=== PATIENT | female | born 1945 | race Caucasian/White ===

== ENCOUNTER 2018-12-09 06:20 | Inpatient (IN) | payer MEDICARE ==
[2018-11-29 11:28] LABS: BASOPHILS # (AUTO) 0.1 X10'3 (0-0.2); BASOPHILS % (AUTO) 0.9 % (0-1); EOSINOPHILS # (AUTO) 0.1 X10'3 (0-0.9); EOSINOPHILS % (AUTO) 1.5 % (0-6); LYMPHOCYTES % (AUTO) 31.2 % (21-51); MEAN CORPUSCULAR HGB CONC 32.9 g/dL (33.0-36.5); MEAN CORPUSCULAR VOLUME 88.2 FL (78-98); MEAN PLATELET VOLUME 10.6 FL (7.4-10.4); MONOCYTES # (AUTO) 0.6 X10'3 (0-0.9); MONOCYTES % (AUTO) 9.2 % (2-12); NEUTROPHILS # (AUTO) 3.7 X10'3 (1.8-7.7); NEUTROPHILS % (AUTO) 57.2 % (42-75); PRE OP HEMATOCRIT 43.4 % (35.0-45.0); PRE OP HEMOGLOBIN 14.2 g/dL (12.0-16.0); PRE OP PLATELET COUNT 211 X10'3 (140-440); RED BLOOD COUNT 4.91 X10'6 (4.20-5.60); RED CELL DISTRIBUTION WIDTH 14.8 % (11.5-14.5)
[2018-11-29 11:52] LABS: PRE OP PROTIME 10.3 SECONDS (9.0-12.0)
[2018-11-29 12:39] LABS: ALBUMIN 3.5 G/DL (3.4-5.0); ALBUMIN/GLOBULIN RATIO 1.1 (1.1-1.5); ALKALINE PHOSPHATASE 74 IU/L (46-116); BLOOD UREA NITROGEN 11 MG/DL (7-18); BUN/CREATININE RATIO 11.3 (6.6-38.0); CALCIUM 8.5 MG/DL (8.5-10.1); CHLORIDE 108 MMOL/L (99-107); CREATININE 0.97 MG/DL (0.40-0.90); PRE OP ALT 20 U/L (30-65); PRE OP ANION GAP 8 (8-16); PRE OP AST 20 U/L (10-37); PRE OP BILIRUB, TOTAL 0.3 MG/DL (0.0-1.0); PRE OP GLUCOSE 79 MG/DL (70-104); PRE OP SODIUM 143 MMOL/L (135-145); TOTAL CARBON DIOXIDE 27.2 MMOL/L (24-32); TOTAL PROTEIN 6.7 G/DL (6.4-8.2); eGFR 57 ML/MIN
[~2018-12-09] VITALS: Ht 170.2 cm; Wt 93.4 kg
[2018-12-09] VITALS (18 sets, daily range): BP systolic 107–163; BP diastolic 50–97
[~2018-12-09 06:20] MED LIST: ASPI81TA52 PO; CITA20TA26 PO; DOCUMENT DATE & TIME OF BETA-BLOCKER PO ONE; LOSA25TA41 PO; LOVA20TA2 PO; METO-395 PO; PRAM0.258 PO; cefazolin/dext.iso 2gm/50ml 50 ML IV ONE; famotidine 20mg tablet PO ONE; ringers solution, lacted 1,000 ML IV SCH; tranexamic acid inj. 940 MG in normal saline 100ml IV soln 100 ML IV ONE; vancomycin inj 1,500 MG in normal saline 300ml IV soln IV ONE
[2018-12-09] MEDS ORDERED: ROPIVAcaine 0.5% (5mg/ml) 30ml vial ONE ×2 (09:39→10:41)
[2018-12-09] MEDS ORDERED: tetracaine 1% (10mg/ml) pres. free inj. ONE (09:39)
[2018-12-09] MEDS ORDERED: MIDAZolam 1mg/ml 10ml vial ONE (09:41)
[2018-12-09] MEDS ORDERED: fentaNYL/PF 50MCG/1 ML 2ML syringe ONE (09:42)
[2018-12-09] MEDS ORDERED: propofol inj 20 ML IV ONE (10:13)
[2018-12-09] MEDS ORDERED: ketorolac trometh. 30mg/ml inj. ONE (10:40)
[2018-12-09] MEDS ORDERED: ROPIVAcaine 0.2%/PF PAIN PUMP 550 ML IJ SCH (10:46)
[2018-12-09] MEDS ORDERED: ringers solution, lacted 1,000 ML IV SCH (10:46)
[2018-12-09] MEDS ORDERED: morphine 4 MG/ML inj SYRINge IV PRN ×2 (10:50)
[2018-12-09] MEDS ORDERED: proCHLORperazine 10 MG/2 ml inj IV PRN (10:50)
[2018-12-09] MEDS ORDERED: ondansetron/PF 4mg/2ml inj IV PRN ×2 (10:50→12:40)
[2018-12-09] MEDS ORDERED: meperidine/PF 25mg/ml syringe IV PRN ×3 (10:50)
[2018-12-09] MEDS ORDERED: HYDROmorphone 1 mg/ml syringe IV PRN (12:40)
[2018-12-09] MEDS ORDERED: bisacodyl 10mg suppository rectal RC PRN (12:40)
[2018-12-09] MEDS ORDERED: oxyCODONE IR 5mg (immed. release) tablet PO PRN (12:40)
[2018-12-09] MEDS ORDERED: acetaminophen 325mg tablet PO PRN (12:40)
[2018-12-09] MEDS ORDERED: HYDROmorphone inj. 0.5 MG/0.5 ML DISP.SYRIN IV PRN (12:40)
[2018-12-09] MEDS ORDERED: diphenhydrAMINE 25mg capsule PO PRN ×2 (12:40)
[2018-12-09] MEDS ORDERED: magnesium hydroxide 30ml (MOM) UD suspension PO PRN (12:40)
--- NOTE | 2018-12-09 12:49 | NUR ---
Received from OR via BED, accompanied by Anesthesiologist DR ADLER and report given by Anesthesiologist. PT DROWSY, APPROPRIATE, DENIES PAIN, RIGHT KNEE W/DRSG, ICE PACK, LEG WRAP, DONTRELL DRAIN, ACB, CDI, PEDROZA CATHETER TO GRAVITY DRAINAGE W/YELLOW URINE IN TUBING. Addendum: 12/09/18 at 1317 by Lolis Ledezma RN Amended: Links added.
[2018-12-09] MEDS ORDERED: glycopyrrolate 0.2mg/ml inj IV ONE (13:40)
[2018-12-09] MEDS ORDERED: glycopyrrolate 0.2mg/ml inj ONE (13:41)
--- NOTE | 2018-12-09 14:04 | NUR ---
Report called to receiving nurse. Transferred via BED, 1 BAG OF PERSONAL Belongings SENT W/PT TO ROOM 4022B, RECEIVING RN AT BEDSIDE TO RECEIVE PT, AT BEDSIDE. Special Issues communicated to receiving nurse. YES. Addendum: 12/09/18 at 1410 by Lolis Ledezma RN Amended: Links added.
--- NOTE | 2018-12-09 14:20 | NUR ---
Received patient from OR, VS started, A&O, at bedside.
[2018-12-09] MEDS: potassium cl 20mEq in 1/2 NS 1,000 ML IV SCH (17:02)
[2018-12-09] MEDS: ceFAZolin 1GM/D5W- ADD-VANTAGE 50 ML IV SCH (17:02)
[2018-12-09] MEDS: acetaminophen 325mg tablet PO SCH ×2 (17:17→20:25)
--- NOTE | 2018-12-09 18:08 | NUR ---
Problems reprioritized. Patient report given, questions answered & plan of care reviewed with Priya LUCAS.
[2018-12-09] MEDS ORDERED: vancomycin/NS 1 GM ADD-VANTAGE 250 ML IV SCH (20:00)
[2018-12-09] MEDS: metoprolol succinate 25mg (24-HOUR) SR. Tablet PO SCH (20:23)
[2018-12-09] MEDS: atorvastatin 10mg tablet PO SCH (20:23)
[2018-12-09] MEDS: sennosides 8.6mg tablet PO SCH (20:23)
[2018-12-09] MEDS: citalopram 20mg tablet PO SCH (20:23)
[2018-12-09] MEDS: losartan 25mg tablet PO SCH (20:23)
[2018-12-09] MEDS: oxyCODONE IR 5mg (immed. release) tablet PO PRN (20:25)
[2018-12-09] MEDS: pramipexole 0.25mg tablet PO SCH (23:55)
[2018-12-10] MEDS: oxyCODONE IR 5mg (immed. release) tablet PO PRN ×5 (00:04→21:09)
[2018-12-10] MEDS: ceFAZolin 1GM/D5W- ADD-VANTAGE 50 ML IV SCH (00:05)
[2018-12-10] MEDS: potassium cl 20mEq in 1/2 NS 1,000 ML IV SCH ×4 (00:05→20:39)
[2018-12-10] MEDS: acetaminophen 325mg tablet PO SCH ×4 (02:00→21:07)
[2018-12-10 02:04] VITALS: BP 116/68
[2018-12-10 05:13] LABS: BASOPHILS % (AUTO) 0.6 % (0-1); EOSINOPHILS # (AUTO) 0.1 X10'3 (0-0.9); EOSINOPHILS % (AUTO) 0.8 % (0-6); HEMATOCRIT 34.6 % (35.0-45.0); HEMOGLOBIN 11.5 g/dl (12.0-16.0); LYMPHOCYTES # (AUTO) 1.4 X10'3 (1.1-4.8); LYMPHOCYTES % (AUTO) 18.4 % (21-51); MEAN CORPUSCULAR HEMOGLOBIN 29.1 PG (27.0-31.0); MEAN CORPUSCULAR HGB CONC 33.2 g/dL (33.0-36.5); MEAN CORPUSCULAR VOLUME 87.7 FL (78-98); MONOCYTES # (AUTO) 0.7 X10'3 (0-0.9); MONOCYTES % (AUTO) 9.5 % (2-12); NEUTROPHILS # (AUTO) 5.2 X10'3 (1.8-7.7); NEUTROPHILS % (AUTO) 70.7 % (42-75); PLATELET COUNT 156 X10'3 (140-440); RED BLOOD COUNT 3.94 X10'6 (4.20-5.60); RED CELL DISTRIBUTION WIDTH 14.9 % (11.5-14.5); WHITE BLOOD COUNT 7.4 X10'3 (4.5-11.0)
[2018-12-10 05:37] LABS: ANION GAP 7 (8-16); CHLORIDE 108 MMOL/L (99-107); POTASSIUM 4.4 MMOL/L (3.5-5.1); SODIUM 139 MMOL/L (135-145); TOTAL CARBON DIOXIDE 24.4 MMOL/L (24-32)
[2018-12-10 06:00] VITALS: BP 113/64
--- NOTE | 2018-12-10 06:30 | NUR ---
Problems reprioritized. Patient report given, questions answered & plan of care reviewed with SHAYY CRUM.
[2018-12-10] MEDS: aspirin 325mg tablet PO SCH (07:35)
[2018-12-10 10:00] VITALS: BP 121/83
--- NOTE | 2018-12-10 13:54 | NUR ---
Joint replacement consult: Pt seen by NOMI for written/verbal high protein ed. RD reviewed high protein needs for wound healing, immune strength, high protein foods, and protein supplementation options. RD contact information provided in case of further questions. Pt agrees to cottage cheese w/ pineapple or peaches at lunch; dietary notified. Addendum: 12/10/18 at [address] Amended: Links added.
[2018-12-10 14:00] VITALS: BP 124/67
[2018-12-10 18:00] VITALS: BP 114/67
--- NOTE | 2018-12-10 18:37 | NUR ---
Problems reprioritized. Patient report given, questions answered & plan of care reviewed with Priya LUCAS.
[2018-12-10] MEDS: pramipexole 0.25mg tablet PO SCH (21:05)
[2018-12-10] MEDS: atorvastatin 10mg tablet PO SCH (21:05)
[2018-12-10] MEDS: citalopram 20mg tablet PO SCH (21:05)
[2018-12-10] MEDS: sennosides 8.6mg tablet PO SCH (21:05)
[2018-12-10] MEDS: losartan 25mg tablet PO SCH (21:07)
[2018-12-10] MEDS: metoprolol succinate 25mg (24-HOUR) SR. Tablet PO SCH (21:08)
[2018-12-10 21:51] VITALS: BP 121/61
[2018-12-11] MEDS: acetaminophen 325mg tablet PO SCH ×2 (01:12→08:10)
[2018-12-11] MEDS: oxyCODONE IR 5mg (immed. release) tablet PO PRN ×3 (01:12→10:08)
[2018-12-11 06:01] LABS: BASOPHILS % (AUTO) 0.4 % (0-1); EOSINOPHILS # (AUTO) 0.1 X10'3 (0-0.9); EOSINOPHILS % (AUTO) 1.4 % (0-6); HEMATOCRIT 33.2 % (35.0-45.0); HEMOGLOBIN 11.2 g/dl (12.0-16.0); LYMPHOCYTES # (AUTO) 1.6 X10'3 (1.1-4.8); LYMPHOCYTES % (AUTO) 19.2 % (21-51); MEAN CORPUSCULAR HEMOGLOBIN 29.6 PG (27.0-31.0); MEAN CORPUSCULAR HGB CONC 33.7 g/dL (33.0-36.5); MEAN CORPUSCULAR VOLUME 87.9 FL (78-98); MEAN PLATELET VOLUME 10.7 FL (7.4-10.4); MONOCYTES % (AUTO) 12.3 % (2-12); NEUTROPHILS # (AUTO) 5.7 X10'3 (1.8-7.7); NEUTROPHILS % (AUTO) 66.7 % (42-75); PLATELET COUNT 140 X10'3 (140-440); RED BLOOD COUNT 3.77 X10'6 (4.20-5.60); WHITE BLOOD COUNT 8.5 X10'3 (4.5-11.0)
--- NOTE | 2018-12-11 06:32 | NUR ---
Problems reprioritized. Patient report given, questions answered & plan of care reviewed with SHAYY LORENZO AND SHAYY BHAKTA.
--- NOTE | 2018-12-11 06:50 | NUR ---
Patient in room ORTHO 4022. I have received report from MAZIN and had the opportunity to ask questions and assume patient care.
[2018-12-11 06:57] VITALS: BP 131/64
[2018-12-11 07:46] LABS: LARGE PLATELETS FEW; PLATELET ESTIMATE NORMAL
[2018-12-11] MEDS ORDERED: ASPI-1 PO (08:32)
[2018-12-11] MEDS: aspirin 325mg tablet PO SCH (09:23)
[2018-12-11 10:00] VITALS: BP 130/62
[2018-12-11] MEDS ORDERED: ROPIVAcaine 0.2%/PF PAIN PUMP 550 ML IJ SCH (10:00)
[2018-12-11] MEDS ORDERED: acetaminophen 325mg tablet PO PRN (12:40)
--- NOTE | 2018-12-11 12:45 | NUR ---
iv dc'd from [facility],site clear,pt verbalize understanding all discharge instructions,dc'd with all belongings via wheelchair
== END 2018-12-11 12:45 | disposition home health service (06) | DRG 470 ==
LOC: PAS IN 06:20 → EDSTATUS 10:00 → ORTHO 4S 14:10 → EDSTATUS 12-10 09:15
PROVIDERS: ADMIT Orthopaedic Surgery; ATTEND Orthopaedic Surgery
PROC: 3E0T3BZ Introduction of Anesthetic Agent into Peripheral Nerves and Plexi, Percutaneous Approach (ICD-10-PCS; 2018-12-09)
PROC: 0SRC0J9 Replacement of Right Knee Joint with Synthetic Substitute, Cemented, Open Approach (ICD-10-PCS; principal; 2018-12-09 09:41)
DX: M17.11 Unilateral primary osteoarthritis, right knee (principal); D62 Acute posthemorrhagic anemia; I10 Essential (primary) hypertension; I25.10 Atherosclerotic heart disease of native coronary artery without angina pectoris; M21.161 Varus deformity, not elsewhere classified, right knee; Z96.652 Presence of left artificial knee joint; Z96.643 Presence of artificial hip joint, bilateral; E66.9 Obesity, unspecified; E78.5 Hyperlipidemia, unspecified; F32.9 Major depressive disorder, single episode, unspecified; Z88.2 Allergy status to sulfonamides; Z91.048 Other nonmedicinal substance allergy status; Z79.82 Long term (current) use of aspirin; Z95.5 Presence of coronary angioplasty implant and graft; Z98.84 Bariatric surgery status; Z90.710 Acquired absence of both cervix and uterus; Z95.1 Presence of aortocoronary bypass graft; Z68.32 Body mass index [BMI] 32.0-32.9, adult
CPT/HCPCS: 36415; 80051; 80053; 82948; 85025; 85610; 85730; 87081; 97110; 97112; 97116; 97162; 97530; A4215; A6454; A7000; C1713; C1758; C1776; G0378; J0690; J1885; J2250; J2704; J2795; J3010; J3370; J3480; J3490; J7120; Q0163

== ENCOUNTER 2019-09-12 05:23 | Day surgery (SDC) | payer MEDICARE ==
[2019-09-05 11:29] LABS: CLARITY,URINE CLOUDY (Clear); COLOR,URINE YELLOW (Yellow); GLUCOSE, URINE NEGATIVE (Neg); KETONES,URINE NEGATIVE (Neg); LEUKOCYTE ESTERASE ,URINE TRACE (Neg); NITRITES, URINE POSITIVE (Neg); OCCULT BLOOD,URINE NEGATIVE (Neg); PROTEIN,URINE NEGATIVE (Neg)
[2019-09-05 11:31] LABS: BASOPHILS # (AUTO) 0.1 X10'3 (0-0.2); EOSINOPHILS # (AUTO) 0.1 X10'3 (0-0.9); EOSINOPHILS % (AUTO) 1.1 % (0-6); LYMPHOCYTES # (AUTO) 1.9 X10'3 (1.1-4.8); LYMPHOCYTES % (AUTO) 28.6 % (21-51); MEAN CORPUSCULAR HEMOGLOBIN 26.1 PG (27.0-31.0); MEAN CORPUSCULAR HGB CONC 32.2 g/dL (33.0-36.5); MEAN PLATELET VOLUME 9.7 FL (7.4-10.4); MONOCYTES # (AUTO) 0.5 X10'3 (0-0.9); MONOCYTES % (AUTO) 7.3 % (2-12); NEUTROPHILS # (AUTO) 4.1 X10'3 (1.8-7.7); PRE OP HEMATOCRIT 38.1 % (35.0-45.0); PRE OP HEMOGLOBIN 12.3 g/dL (12.0-16.0); PRE OP PLATELET COUNT 226 X10'3 (140-440); RED BLOOD COUNT 4.71 X10'6 (4.20-5.60); RED CELL DISTRIBUTION WIDTH 15.6 % (11.5-14.5)
[2019-09-05 11:36] LABS: MUCUS STRANDS FEW /LPF (Neg); SQUAMOUS EPITHELIAL CELL,UR MODERATE /LPF (FEW); UA COLLECTION TYPE NON-SPECIFIED
[2019-09-05 11:37] LABS: BACTERIA,URINE 2+ /HPF (Neg); RBC,URINE 0-2 /HPF (0-2); WBC CLUMPS,URINE FEW /HPF (NEGATIVE); WBC,URINE 0-4 /HPF (0-4)
[2019-09-05 11:52] LABS: ALBUMIN 3.3 G/DL (3.4-5.0); ALKALINE PHOSPHATASE 71 IU/L (46-116); BLOOD UREA NITROGEN 18 MG/DL (7-18); BUN/CREATININE RATIO 17.6 (6.6-38.0); CALCIUM 8.6 MG/DL (8.5-10.1); CHLORIDE 108 MMOL/L (99-107); CREATININE 1.02 MG/DL (0.40-0.90); PRE OP ALT 11 U/L (30-65); PRE OP ANION GAP 5 (8-16); PRE OP AST 16 U/L (10-37); PRE OP BILIRUB, TOTAL 0.3 MG/DL (0.0-1.0); PRE OP GLUCOSE 96 MG/DL (70-104); PRE OP POTASSIUM 4.3 MMOL/L (3.4-5.1); PRE OP SODIUM 141 MMOL/L (135-145); TOTAL CARBON DIOXIDE 28.5 MMOL/L (24-32); TOTAL PROTEIN 6.6 G/DL (6.4-8.2); eGFR 53 ML/MIN
[~2019-09-12] VITALS: Ht 171.4 cm; Wt 98.6 kg
[2019-09-12] VITALS (12 sets, daily range): BP systolic 134–153; BP diastolic 72–86
[~2019-09-12 05:23] MED LIST changes: +ASPI-611 PO; -ASPI81TA52 PO; +DIPH25CA83 PO; -DOCUMENT DATE & TIME OF BETA-BLOCKER PO ONE; +IBUP1TAB11 PO; +MELA10TA PO; +NAPR220C62 PO; -cefazolin/dext.iso 2gm/50ml 50 ML IV ONE; -famotidine 20mg tablet PO ONE; -tranexamic acid inj. 940 MG in normal saline 100ml IV soln 100 ML IV ONE; -vancomycin inj 1,500 MG in normal saline 300ml IV soln IV ONE
[2019-09-12] MEDS ORDERED: famotidine 20mg tablet PO ONE (05:30)
[2019-09-12] MEDS ORDERED: DOCUMENT DATE & TIME OF BETA-BLOCKER PO ONE (05:30)
[2019-09-12] MEDS ORDERED: cefazolin/dext.iso 2gm/50ml 50 ML IV ONE (05:30)
[2019-09-12] MEDS ORDERED: LIDOcaine 1% (10mg/ml) 2ml vial ONE (06:12)
[2019-09-12] MEDS ORDERED: desflurane 240ml liquid inh. IH ONE (06:52)
[2019-09-12] MEDS ORDERED: cloNIDine hcl/PF 100mcg/ml inj ONE (06:54)
[2019-09-12] MEDS ORDERED: ROPIVAcaine 0.5% (5mg/ml) 30ml vial ONE (07:01)
[2019-09-12] MEDS ORDERED: fentaNYL/PF 50MCG/1 ML 2ML syringe ONE (07:01)
[2019-09-12] MEDS ORDERED: dexamethasone sod phosphate 4mg/ml inj. ONE (07:01)
[2019-09-12] MEDS ORDERED: MIDAZolam 5mg/5ml vial ONE (07:01)
--- NOTE | 2019-09-12 07:01 | NUR ---
TEMP 99.5 DR SAMANO AWARE. PT ASYMPTOMATIC. HAS NOT TRAVELED OUT OF THE AREA. NO KNOWN EXPOSURE TO COVID.
[2019-09-12] MEDS ORDERED: LIDOcaine 2% (20mg/ml) 5ml vial ONE (07:16)
[2019-09-12] MEDS ORDERED: propofol inj 20 ML IV ONE (07:16)
[2019-09-12] MEDS ORDERED: ondansetron/PF 4mg/2ml inj ONE (07:36)
[2019-09-12] MEDS ORDERED: proCHLORperazine 10 MG/2 ml inj IV PRN (07:50)
[2019-09-12] MEDS ORDERED: ringers solution, lacted 1,000 ML IV SCH (07:50)
[2019-09-12] MEDS ORDERED: morphine 4 MG/ML inj SYRINge IV PRN (07:50)
[2019-09-12] MEDS ORDERED: morphine 2 MG/ML inj. syringe IV PRN (07:50)
[2019-09-12] MEDS ORDERED: ondansetron/PF 4mg/2ml inj IV PRN (07:50)
[2019-09-12] MEDS ORDERED: meperidine/PF 25mg/ml syringe IV PRN ×3 (07:50)
[2019-09-12] MEDS ORDERED: acetaminophen 1,000mg/100ml IV 100 ML IV ONE (08:53)
--- NOTE | 2019-09-12 10:05 | NUR ---
Received from OR via BED, accompanied by Anesthesiologist DR BOOTH and report given by Anesthesiolgist. PATIENT A&OX4, DENIES PAIN, V/S WNL, NEUROVASCULAR CHECKS INTACT, 20G PIV LUE, SCD ON, SPLINT/DRESSING TO LEFT ANKLE CDI ELEVATED WITH ICEBAG APPLIED.
--- NOTE | 2019-09-12 11:35 | NUR ---
PATIENT A&OX4, DENIES PAIN, V/S WNL, NEUROVASCULAR CHECKS INTACT, 20G PIV LUE D/C, SCD OFF, SPLINT DRESSING TO LEFT FOOT CDI ELEVATED WITH ICEBAG APPLIED. I HAVE REVIEWED D/C INSTRUCTIONS WITH PATIENT AND FAMILY AND THEY HAVE VERBALIZED UNDERSTANDING. PATIENT D/C HOME WITH ALL BELONGINGS AND FAMILY GAVE TRANSPORT HOME.
== END 2019-09-12 11:35 | disposition home or self-care (01) ==
LOC: PAS 05:23
PROVIDERS: ATTEND Podiatrist Foot & Ankle Surgery
DX: M21.42 Flat foot [pes planus] (acquired), left foot (principal); M19.072 Primary osteoarthritis, left ankle and foot; M21.6X2 Other acquired deformities of left foot; G89.18 Other acute postprocedural pain; I25.10 Atherosclerotic heart disease of native coronary artery without angina pectoris; I10 Essential (primary) hypertension; E66.01 Morbid (severe) obesity due to excess calories; Z68.33 Body mass index [BMI] 33.0-33.9, adult; F32.9 Major depressive disorder, single episode, unspecified; Z95.5 Presence of coronary angioplasty implant and graft; Z98.84 Bariatric surgery status; Z11.59 Encounter for screening for other viral diseases; Z91.09 Other allergy status, other than to drugs and biological substances; Z91.040 Latex allergy status; Z88.2 Allergy status to sulfonamides; Z96.653 Presence of artificial knee joint, bilateral; Z79.899 Other long term (current) drug therapy; Z96.643 Presence of artificial hip joint, bilateral; Z72.89 Other problems related to lifestyle
CPT/HCPCS: 27687; 28304; 28725; 28740; 36415; 64445; 64447; 71046; 73630; 76000; 80053; 81001; 82948; 85025; 87077; 87088; 87186; A6223; C1713; J0131; J0735; J1100; J2001; J2250; J2405; J2704; J3010; J7120; U0003; A4618; A6449; A7000; J2795

== ENCOUNTER 2024-09-19 09:38 | Day surgery (SDC) | payer MEDICARE, OTHER ==
[2024-09-12 13:55] LABS: BASOPHILS % (AUTO) 0.6 % (0-1); EOSINOPHILS # (AUTO) 0.2 X10'3 (0-0.9); EOSINOPHILS % (AUTO) 3.1 % (0-6); LYMPHOCYTES # (AUTO) 2.1 X10'3 (1.1-4.8); LYMPHOCYTES % (AUTO) 31.3 % (21-51); MEAN CORPUSCULAR HEMOGLOBIN 30.8 PG (27.0-31.0); MEAN CORPUSCULAR HGB CONC 32.9 g/dL (33.0-36.5); MEAN CORPUSCULAR VOLUME 93.8 FL (78-98); MEAN PLATELET VOLUME 9.4 FL (7.4-10.4); MONOCYTES # (AUTO) 0.5 X10'3 (0-0.9); MONOCYTES % (AUTO) 7.7 % (2-12); NEUTROPHILS # (AUTO) 3.8 X10'3 (1.8-7.7); NEUTROPHILS % (AUTO) 57.3 % (42-75); PRE OP HEMATOCRIT 36.8 % (35.0-45.0); PRE OP HEMOGLOBIN 12.1 g/dL (12.0-16.0); PRE OP PLATELET COUNT 175 X10'3 (140-440); PRE OP WHITE BLOOD COUNT 6.6 10'3 (4.8-10.8); RED BLOOD COUNT 3.92 X10'6 (4.20-5.60); RED CELL DISTRIBUTION WIDTH 18.1 % (11.5-14.5)
[2024-09-12 14:15] LABS: ALBUMIN/GLOBULIN RATIO 1.3 (1.1-1.5); ALKALINE PHOSPHATASE 97 IU/L (46-116); BLOOD UREA NITROGEN 14 MG/DL (7-18); BUN/CREATININE RATIO 19.4 (10.0-20.0); CALCIUM 8.2 MG/DL (8.5-10.1); CHLORIDE 110 MMOL/L (99-107); CREATININE 0.72 MG/DL (0.40-0.90); PRE OP ALT 31 U/L (30-65); PRE OP ANION GAP 10 (8-16); PRE OP AST 26 U/L (10-37); PRE OP BILIRUB, TOTAL 0.2 MG/DL (0.0-1.0); PRE OP GLUCOSE 91 MG/DL (70-104); PRE OP SODIUM 146 MMOL/L (135-145); TOTAL CARBON DIOXIDE 26.2 MMOL/L (24-32); TOTAL PROTEIN 5.4 G/DL (6.4-8.2); eGFR 79 ML/MIN
[~2024-09-19] VITALS: Ht 170.2 cm; Wt 97.8 kg
[2024-09-19] VITALS (8 sets, daily range): BP systolic 126–154; BP diastolic 68–83; PULSE 51–85; RESP 13–20; TEMP 97.8; O2SAT 94–98
[2024-09-19] MEDS: ceFAZolin 2gm/dext,iso 50mL 50 ML IV ONE (05:30)
[~2024-09-19 09:38] MED LIST changes: -ASPI-611 PO; +ATOR40TA72 PO; +CITA-178 PO; -CITA20TA26 PO; -DIPH25CA83 PO; +GABA-535 PO; -IBUP1TAB11 PO; -LOSA25TA41 PO; -LOVA20TA2 PO; +MELA10CA11 PO; -MELA10TA PO; -NAPR220C62 PO; +TRAZ-251 PO; +WARF-55 PO; -ringers solution, lacted 1,000 ML IV SCH
[2024-09-19] MEDS: famotidine 20mg tablet PO ONE (11:30)
[2024-09-19] MEDS: ringers solution, lacted 1,000 ML IV SCH (11:30)
[2024-09-19] MEDS ORDERED: labetalol 20mg/4ml (5mg/ml) syringe IV PRN (11:50)
[2024-09-19] MEDS ORDERED: meperidine/PF 25mg/ml syringe IV PRN (11:50)
[2024-09-19] MEDS ORDERED: hydrALAZINE 20mg/ml inj. IV PRN (11:50)
[2024-09-19] MEDS ORDERED: morphine 2 MG/ML inj. syringe IV PRN (11:50)
[2024-09-19] MEDS ORDERED: acetaminophen 1,000mg/100ml IV 100 ML IV PRN (11:50)
[2024-09-19] MEDS ORDERED: HYDROmorphone/PF 0.2 MG/ML SYRINGE IV PRN ×2 (11:50)
[2024-09-19] MEDS ORDERED: ringers solution, lacted 1,000 ML IV SCH (11:50)
[2024-09-19] MEDS ORDERED: ondansetron/PF 4mg/2ml inj IV PRN (11:50)
[2024-09-19] MEDS ORDERED: morphine 4 MG/ML inj SYRINge IV PRN (11:50)
[2024-09-19] MEDS ORDERED: proCHLORperazine 10 MG/2 ml inj IV PRN (11:50)
[2024-09-19 12:27] LABS: INR 1.2 INR; PRE OP PARTIAL THROMB. TIME 25 SECONDS (22-32); PROTHROMBIN TIME 11.7 SECONDS (9.0-12.0)
[2024-09-19] MEDS ORDERED: LIDOcaine 1% (10mg/ml)w/preservative inj. 20ml MDV ONE ×2 (13:54→14:07)
[2024-09-19] MEDS ORDERED: BUPIVAcaine/PF 2.5mg/ml (0.25%) 10ml vial ONE (13:54)
[2024-09-19] MEDS ORDERED: BUPIVAcaine 2.5mg/ml inj 50ml vial (contains preservative) ONE (14:07)
[2024-09-19] MEDS ORDERED: sevoflurane 250ml liquid IH ONE (14:15)
[2024-09-19] MEDS ORDERED: midazolam 1 mg/ML 2ml injection ONE (14:23)
[2024-09-19] MEDS ORDERED: propofol inj 20 ML IV ONE (14:44)
[2024-09-19] MEDS ORDERED: fentaNYL /PF 50mcg/ml 5ml ampule ONE (14:44)
[2024-09-19] MEDS ORDERED: LIDOcaine 2% (20mg/ml) 5ml vial ONE (14:44)
[2024-09-19] MEDS ORDERED: dexamethasone sod phosphate 4mg/ml inj. ONE (14:44)
[2024-09-19] MEDS ORDERED: ondansetron/PF 4mg/2ml inj ONE (14:45)
[2024-09-19] MEDS ORDERED: ePHEDrine 50MG/ML INJ. ONE (14:45)
[2024-09-19] MEDS ORDERED: 0.9 % SODIUM CHLORIDE 10 ML VIAL ONE (14:45)
[2024-09-19] MEDS: LIDOcaine-PF 1% 20mL vial 20 ML VIAL IJ ONE (15:44)
--- NOTE | 2024-09-19 16:40 | OPERATIVE REPORT ---
Operative Report Providers to ~ Date of Procedure: Sep 19, 2024 Pre-Operative Diagnosis: Breast cancer, right Lower inner quadrant Post-Operative Diagnosis SAME as PRE-Op Procedure Performed Right tracking marker localization segmental mastectomy Specimen radiograph Lymphatic mapping Targeted axillary dissection Intercostal block at each of four levels for postoperative pain control Surgeon: Garrett Sanchez MD Supervisor [employer] Reservations None Anesthesiologist: Jocelyn Pereyra Type of Anesthesia: General Findings: Previously placed biopsy marker clip, mass lesion, and calcifications identified on specimen radiograph Two sentinel lymph nodes identified peak count 958 Complications None Prosthetics\Implants used: None Estimated Blood Loss: Less than 50 cc Specimen Removed: Right lower inner quadrant breast specimen [place] nodes 1. And 2. Description of Procedure: The patient was identified in the supine position with her right arm extended. She was prepped and draped in the usual sterile fashion. Prior to surgery the patient has had an ultrasound-guided tracking marker placed in the right axilla at the site of a previously biopsied and targeted node and a stereotactic tracking marker placed in the area of the previously placed biopsy marker clip. Preoperative antibiotics have been administered within 1 hour prior to surgery. SCDs have been applied. A curvilinear incision was made over the audible tracking marker signal flaps were raised towards and away from the nipple. The underlying breast tissue was excised in a segmental fashion down to fascia. The specimen radiograph demonstrates recovery of the targeted marker clip, the residual mass, and the previously identified calcifications. The specimen was oriented and sent for pathologic study in formalin. The wound was thoroughly irrigated. Hemostasis was obtained. The incision is then closed with interrupted 3-0 Vicryl pop-off sutures for the deep layers and a running 3-0 Stratafix suture for skin Attention was then turned to the right axilla. A hot spot was localized with the Hologic gamma probe Lymphatic mapping was carried out with the QE Venturesgic gamma probe. The Pintuition detector was used to localize the targeted axillary node. This was excised with the LigaSure, and sent for pathologic study in formalin. Using the Hologic gamma probe a 2nd sentinel lymph node was identified and this is also excised with the LigaSure. Further mapping with both the detector and the gamma probe do not detect any additional abnormal nodes. There are no palpably enlarged nodes remaining. Through this incision and intercostal block was performed with 2 cc of 0.25% Marcaine mixed with 1% lidocaine per level for each of four levels for postoperative pain control. Further local is infused in the flaps. The incision was closed with interrupted 3-0 Vicryl pop-off sutures for the deep layers and a running 3-0 Stratafix skin suture. Incisions were dressed with Dermabond and Steri-Strips. The patient was taken to the PAR in stable condition. Estimated blood loss less than 50 cc. Final sponge and needle count was correct x2 Counts repoted as correct: Yes GARRETT SANCHEZ MD Sep 19, 2024 16:40
--- NOTE | 2024-09-19 17:06 | RADIOLOGY REPORT ---
Surgical resection specimen radiograph Findings/ IMPRESSION: Postop radiograph demonstrates the biopsy clip along with the specified target contained within the s pecimen.
--- NOTE | 2024-09-23 17:58 | PATHOLOGY REPORT ---
[facility] [address] [place] [address] SURGICAL PATHOLOGY REPORT CaseNumber: [id number] Surgeon:Aaron Sanchez M.D. CLINICAL INFORMATION CLINICAL INFORMATION: Cancer in right breast. Neoadjuvant therapy : Yes. DIAGNOSIS DIAGNOSIS: A.BREAST, RIGHT; SEGMENTAL MASTECTOMY - FIBROHISTIOCYTIC REPARATIVE CHANGES CONSISTENT WITH NEOADJUVANT THERAPY EFFECT. - RESIDUAL CARCINOMA IS NOT IDENTIFIED. - MARGINS CLEAR. DIAGNOSIS: B.LYMPH NODE, RIGHT AXILLA, SENTINEL #1; EXCISION - ONE LYMPH NODE POSITIVE FOR METASTATIC CARCINOMA SHOWING PARTIAL TREATMENT EFFECT (04/02). - EXTRANODAL EXTENSION PRESENT. DIAGNOSIS: C.LYMPH NODE, RIGHT AXILLA, SENTINEL #2; EXCISION - ONE OF THREE LYMPH NODES POSITIVE FOR METASTATIC CARCINOMA (04/04). COMMENT NOTE: Case [id number] is reviewed. NOTE: Case [id number] is reviewed. NOTE: Case [id number] is reviewed. MICROSCOPIC DESCRIPTION A. BREAST, RIGHT MICROSCOPIC DESCRIPTION: Eight slides from part A are examined. Present is breast tissue. The grossly described firm area includes fibrohistiocytic inflammatory foci with cystic degenerative change. The re are associated coarse calcifications. Residual carcinoma is not identified. B. LYMPH NODE, RIGHT AXILLA, SENTINEL #1 MICROSCOPIC DESCRIPTION: Six H&E stained slides and three immunoperoxidase study slides for AE1/AE3 f rom part B are examined. The grossly-described candidate lymph node is lobulated tissue subtotally in volved by carcinoma. There are broad hyalinized zones with chronic inflammatory infiltrate consistent with partial treatment effect. The residual tumor is in the form of multiple foci within a presumed totally altered lymph node profile. The lymph node profile measures 2.5 cm in greatest dimension. Res idual carcinoma involves approximately 30% of the lymph node area consisting of multiple residual isl ands measuring up to 6 mm in greatest dimension. Extranodal extension into fat is present. C. LYMPH NODE, RIGHT AXILLA, SENTINEL #2 MICROSCOPIC DESCRIPTION: Five H&E stained slides and two immunoperoxidase study slide for AE1/AE3 fro m part C are examined. Three lymph node candidates are confirmed. Two are negative for metastatic car cinoma by routine light microscopy and confirmatory immunoperoxidase study for AE1/AE3. One contains a small focus of metastatic carcinoma which spans 1.5 mm. (st) GROSS DESCRIPTION A. BREAST, RIGHT GROSS DESCRIPTION: Received in a container of formalin labeled with the patient's name, number, and " breast segmental right" is a 91 g oriented excision of fibrofatty breast tissue which measures 5.5 x 0.5 x 2 cm.The superior margin is marked blue, the inferior margin is marked green, the medial margin is marked orange, the lateral margin is marked yellow, the anterior margin is marked red, and the po sterior margin is marked black. Sectioning reveals a 1.5 x 1 x 1 cm ill-defined firm area present at the posterior margin. Sectioning the firm area reveals foreign material (metallic clip). Sections are submitted as follows: A1) Superior marginA2) Inferior marginA3) Medial marginA4) Lateral marginA5) Anterior marginA6-A8) P osterior margin with firm area The time at which the specimen was removed was not provided. The time at which the specimen was plac ed in formalin was not provided. (meb) B. LYMPH NODE, RIGHT AXILLA, SENTINEL #1 GROSS DESCRIPTION: Received in a container of formalin labeled with the patient's name, number, and " sentinel node #1" is a 19 g irregularly-shaped excision of fat which measures 6 x 4.5 x 1.5 cm. Sect ioning reveals a 2.5 x 1 x 1.5 cm lymph node candidate. The specimen is sectioned and submitted as B 1-B3. C. LYMPH NODE, RIGHT AXILLA, SENTINEL #2 GROSS DESCRIPTION: Received in a container of formalin labeled with the patient's name, number, and " sentinel node #2" is an 8 g irregularly-shaped excision of fat which measures 4.5 x 3.5 x 1 cm. Secti oning reveals three lymph node candidates. Sections are submitted as follows: C1) Two bisected lymph node candidatesC3) Single bisected lymph node candidate SYNOPTIC REPORT SYNOPTIC TEXT: INVASIVE CARCINOMA OF THE BREAST: Resection Specimen Procedure: Excision (less than total mastectomy) Specimen Laterality: Right Tumor Histologic Type: Invasive carcinoma of no special type (ductal) Histologic Grade (Bindu Histologic Score): from [id number] Glandular (Acinar) / Tubular Differentiation: Score 3 Nuclear Pleomorphism: Score 2 Mitotic Rate: Score 2 Overall Grade: Grade 2 (score 7) Tumor Size: No residual invasive carcinoma Ductal Carcinoma In Situ (DCIS): Not identified Lymphatic and / or Vascular Invasion: Not identified Treatment Effect in the Breast: No residual invasive carcinoma is present in the breast after presurgical therapy Treatment Effect in the Lymph Nodes: Probable or definite response to presurgical therapy in metastatic carcinoma Regional Lymph Nodes Regional Lymph Node Status: Tumor present in regional lymph node(s) Number of Lymph Nodes with Macrometastases: 1 Number of Lymph Nodes with Micrometastases: 1 Size of Largest Alia Metastatic Deposit: 6 mm Extranodal Extension: Present, greater than 2 mm Total Number of Lymph Nodes Examined (sentinel and non-sentinel): 4 pTNM Classification (AJCC 8th Edition) Modified Classification: y pT Category: pT0 N Suffix: (sn)N1a CAP eCP 2023 Q2 Release Previous prognostic markers ([id number], Right breast, 4:00, 3 cm from nipple) ER: 99% MA: 0% Her2: 1+ Ki-67: 85% Agendia: Mammaprint: High risk 2. Electronically signed by: Magdi Porras M.D. 09/23/2024 5:28:00 PM
== END 2024-09-19 17:30 | disposition home or self-care (01) ==
LOC: PAS 09:38
PROVIDERS: ATTEND Surgery
DX: C50.311 Malignant neoplasm of lower-inner quadrant of right female breast (principal); I10 Essential (primary) hypertension; F32.A Depression, unspecified; I25.10 Atherosclerotic heart disease of native coronary artery without angina pectoris; Z79.01 Long term (current) use of anticoagulants; Z79.899 Other long term (current) drug therapy; Z96.653 Presence of artificial knee joint, bilateral; Z90.710 Acquired absence of both cervix and uterus; Z98.890 Other specified postprocedural states; Z88.2 Allergy status to sulfonamides
CPT/HCPCS: 19301; 36415; 38525; 38792; 80053; 82948; 85025; 85610; 85730; A4215; A4618; A6402; A7000; J1100; J2003; J2250; J2405; J2704; J3010; J3490; J7030; J7120; Z7506; Z7508; Z7512; Z7610; 88307; 88342; A6449